=== PATIENT | female | born 1975 | race Caucasian/White ===

== ENCOUNTER → 2017-07-02 | Outpatient (CLI) | payer BC ==
--- NOTE | 2017-07-02 22:33 | CT ---
EXAMINATION TYPE: CT brain wo/w con DATE OF EXAM: 07/02/2017 COMPARISON: NONE HISTORY: 42-year-old female Migraines x 17 years, becoming more frequent on a weekly basis. TECHNIQUE: Examination was done in axial plane before and after intravenous contrast. 100 mL Isovue -370 contrast was administered. Coronal and sagittal reconstructions performed. CT DLP: 1965.4 mGycm Automated exposure control for dose reduction was used. FINDINGS: There is no evidence of acute intracranial hemorrhage, acute ischemic changes, mass, mass-effect, or extra-axial fluid collection. There is no effacement of cerebral sulci or basal subarachnoid cister ns. There is no hydrocephalus. There is no midline shift. Flanagan-white matter distinction is preserv ed. No enhancing intracranial lesions. Dural venous sinuses are patent. Paranasal sinuses and mastoid air cells well pneumatized. Orbits and globes are intact. IMPRESSION: No acute intracranial abnormality or enhancing intracranial lesions seen.
== END | disposition home or self-care (01) ==
LOC: RADCTMAIN 15:30
PROVIDERS: ATTEND Family Medicine
DX: R51 Headache (principal)
CPT/HCPCS: 70470; Q9967

== ENCOUNTER 2018-05-28 17:55 | Emergency (ER) | payer BC ==
[2018-05-28 18:33] VITALS: TEMP 98.8
[2018-05-28] MEDS ORDERED: SODIUM CHLORIDE 0.9% 1,000 ML IV STA (18:51)
[2018-05-28] MEDS ORDERED: KETOROLAC 30 MG/ML 1 ML VIAL IVP STA (19:00)
[2018-05-28] MEDS ORDERED: ONDANSETRON 4 MG/2 ML VIAL IVP STA (19:00)
--- NOTE | 2018-05-28 19:08 | ED ---
Abdominal Pain HPI - General Chief Complaint: Abdominal Pain Stated Complaint: Abd and back pain Time Seen by Provider: 05/28/18 18:51 Source: patient, RN notes reviewed Mode of arrival: ambulatory Limitations: no limitations - History of Present Illness Initial Comments: 43-year-old female presents emergency Department with chief complaint of upper abdominal pain, back pain. Patient states this started yesterday has progressed and today. Patient states it's worse when she cannot eat today. She has had a prior cholecystectomy 21 years ago. Patient denies any chest pain or shortness of breath. No fever or chills. She's had some nausea denies any change in bowel habits. She has no dysuria no hematuria. Patient states that all the pain is in her upper abdomen no prior history of pancreatitis. She does take omeprazole currently for GERD. She does have some current symptoms. - Related Data Previous Rx's Medication Instructions Recorded Omeprazole 40 mg PO DAILY #14 capsule. 05/28/18 Ondansetron Odt [Zofran Odt] 4 mg PO Q8HR PRN #10 tab 05/28/18 Sucralfate [Carafate] 1 gm PO BID #14 tablet 05/28/18 Allergies Allergy/AdvReac Type Severity Reaction Status Date / Time No Known Allergies Allergy Verified 05/28/18 18:33 Review of Systems ROS Statement: Those systems with pertinent positive or pertinent negative responses have been documented in the HPI. ROS Other: All systems not noted in ROS Statement are negative. Past Medical History Additional Past Medical History / Comment(s): migraines History of Any Multi-Drug Resistant Organisms: None Reported Past Surgical History: Cholecystectomy Past Psychological History: Depression Smoking Status: Never smoker Past Alcohol Use History: None Reported Past Drug Use History: None Reported General Exam Limitations: no limitations General appearance: alert, in no apparent distress Head exam: Present: atraumatic, normocephalic, normal inspection Eye exam: Present: normal appearance, PERRL, EOMI. Absent: scleral icterus, conjunctival injection, periorbital swelling ENT exam: Present: normal exam, normal oropharynx, mucous membranes moist Neck exam: Present: normal inspection. Absent: tenderness, meningismus, lymphadenopathy Respiratory exam: Present: normal lung sounds bilaterally. Absent: respiratory distress, wheezes, rales, rhonchi, stridor Cardiovascular Exam: Present: regular rate, normal rhythm, normal heart sounds. Absent: systolic murmur, diastolic murmur, rubs, gallop, clicks GI/Abdominal exam: Present: soft, tenderness (Moderate upper abdominal tenderness), normal bowel sounds. Absent: distended, guarding, rebound, rigid Back exam: Absent: CVA tenderness (R), CVA tenderness (L) Skin exam: Present: warm, dry, intact, normal color. Absent: rash Course Vital Signs 05/28/18 18:29 Temperature 98.8 F Pulse Rate 98 Respiratory 18 Rate Blood Pressure 133/72 O2 Sat by Pulse 99 Oximetry Medical Decision Making - Medical Decision Making 43-year-old male presented for upper abdominal pain. Is reproducible pain epigastric region. Patient had lab work, CT and urinalysis. Patient's symptoms are more consistent with gastritis or duodenitis. Patient has no evidence of any acute findings on CT. Patient will be given GI cocktail, discharge on up to 40 mg and Carafate. Patient will follow-up with on-call GI and return for any worsening symptoms. - Lab Data Result diagrams: 05/28/18 19:21 05/28/18 19:21 Lab Results 05/28/18 05/28/18 05/28/18 Range/Units 19:21 19:21 19:21 WBC 12.7 H (3.8-10.6) k/uL RBC 5.28 (3.80-5.40) m/uL Hgb 15.2 (11.4-16.0) gm/dL Hct 46.1 H (34.0-46.0) % MCV 87.3 (80.0-100.0) fL MCH 28.8 (25.0-35.0) pg MCHC 33.0 (31.0-37.0) g/dL RDW 12.6 (11.5-15.5) % Plt Count 313 (150-450) k/uL Neutrophils % 62 % Lymphocytes % 30 % Monocytes % 4 % Eosinophils % 2 % Basophils % 0 % Neutrophils # 7.9 H (1.3-7.7) k/uL Lymphocytes # 3.8 (1.0-4.8) k/uL Monocytes # 0.6 (0-1.0) k/uL Eosinophils # 0.2 (0-0.7) k/uL Basophils # 0.0 (0-0.2) k/uL Sodium 138 (137-145) mmol/L Potassium 4.3 (3.5-5.1) mmol/L Chloride 107 (98-107) mmol/L Carbon Dioxide 23 (22-30) mmol/L Anion Gap 8 mmol/L BUN 14 (7-17) mg/dL Creatinine 0.60 (0.52-1.04) mg/dL Est GFR (CKD-EPI)AfAm >90 (>60 ml/min/1.73 sqM) Est GFR (CKD-EPI)NonAf >90 (>60 ml/min/1.73 sqM) Glucose 75 (74-99) mg/dL Plasma Lactic Acid Erick 0.8 (0.7-2.0) mmol/L Calcium 8.6 (8.4-10.2) mg/dL Total Bilirubin 0.8 (0.2-1.3) mg/dL AST 27 (14-36) U/L ALT 39 (9-52) U/L Alkaline Phosphatase 47 (38-126) U/L Troponin I (0.000-0.034) ng/mL Total Protein 6.1 L (6.3-8.2) g/dL Albumin 3.5 (3.5-5.0) g/dL Amylase 50 (30-110) U/L Lipase 96 (23-300) U/L Urine Color Urine Appearance (Clear) Urine pH (5.0-8.0) Ur Specific Sandstone (1.001-1.035) Urine Protein (Negative) Urine Glucose (UA) (Negative) Urine Ketones (Negative) Urine Blood (Negative) Urine Nitrite (Negative) Urine Bilirubin (Negative) Urine Urobilinogen (<2.0) mg/dL Ur Leukocyte Esterase (Negative) Urine RBC (0-5) /hpf Urine WBC (0-5) /hpf Ur Squamous Epith Cells (0-4) /hpf Hyaline Casts (0-2) /lpf Urine Mucus (None) /hpf Urine HCG, Qual (Not Detectd) 05/28/18 05/28/18 05/28/18 Range/Units 19:21 19:40 19:40 WBC (3.8-10.6) k/uL RBC (3.80-5.40) m/uL Hgb (11.4-16.0) gm/dL Hct (34.0-46.0) % MCV (80.0-100.0) fL MCH (25.0-35.0) pg MCHC (31.0-37.0) g/dL RDW (11.5-15.5) % Plt Count (150-450) k/uL Neutrophils % % Lymphocytes % % Monocytes % % Eosinophils % % Basophils % % Neutrophils # (1.3-7.7) k/uL Lymphocytes # (1.0-4.8) k/uL Monocytes # (0-1.0) k/uL Eosinophils # (0-0.7) k/uL Basophils # (0-0.2) k/uL Sodium (137-145) mmol/L Potassium (3.5-5.1) mmol/L Chloride (98-107) mmol/L Carbon Dioxide (22-30) mmol/L Anion Gap mmol/L BUN (7-17) mg/dL Creatinine (0.52-1.04) mg/dL Est GFR (CKD-EPI)AfAm (>60 ml/min/1.73 sqM) Est GFR (CKD-EPI)NonAf (>60 ml/min/1.73 sqM) Glucose (74-99) mg/dL Plasma Lactic Acid Erick (0.7-2.0) mmol/L Calcium (8.4-10.2) mg/dL Total Bilirubin (0.2-1.3) mg/dL AST (14-36) U/L ALT (9-52) U/L Alkaline Phosphatase (38-126) U/L Troponin I <0.012 (0.000-0.034) ng/mL Total Protein (6.3-8.2) g/dL Albumin (3.5-5.0) g/dL Amylase (30-110) U/L Lipase (23-300) U/L Urine Color Yellow Urine Appearance Clear (Clear) Urine pH 6.0 (5.0-8.0) Ur Specific Sandstone 1.031 (1.001-1.035) Urine Protein Trace H (Negative) Urine Glucose (UA) Negative (Negative) Urine Ketones 2+ H (Negative) Urine Blood Moderate H (Negative) Urine Nitrite Negative (Negative) Urine Bilirubin Negative (Negative) Urine Urobilinogen <2.0 (<2.0) mg/dL Ur Leukocyte Esterase Negative (Negative) Urine RBC 11 H (0-5) /hpf Urine WBC 2 (0-5) /hpf Ur Squamous Epith Cells 4 (0-4) /hpf Hyaline Casts 3 H (0-2) /lpf Urine Mucus Many H (None) /hpf Urine HCG, Qual Not Detected (Not Detectd) Disposition Clinical Impression: Abdominal pain, Gastritis Disposition: HOME SELF-CARE Condition: Stable Instructions (If sedation given, give patient instructions): Gastritis (ED), Diet for Stomach Ulcers and Gastritis (ED) Additional Instructions: Please return to the Emergency Department if symptoms worsen or any other concerns. Prescriptions: Sucralfate [Carafate] 1 gm PO BID #14 tablet Omeprazole 40 mg PO DAILY #14 capsule. Ondansetron Odt [Zofran Odt] 4 mg PO Q8HR PRN #10 tab PRN Reason: Nausea Is patient prescribed a controlled substance at d/c from ED?: No Referrals: Derrick Colvin DO [Primary Care Provider] - 1-2 days Time of Disposition: 21:02
[2018-05-28 19:45] LABS: Basophils % (A) 0 %; Eosinophils # (A) 0.2 k/uL (0-0.7); Eosinophils % (A) 2 %; HCT 46.1 % (34.0-46.0); HGB 15.2 gm/dL (11.4-16.0); Lymphocytes # (A) 3.8 k/uL (1.0-4.8); Lymphocytes % (A) 30 %; MCH 28.8 pg (25.0-35.0); MCV 87.3 fL (80.0-100.0); Mean Platelet Volume 6.4; Monocytes # (A) 0.6 k/uL (0-1.0); Monocytes % (A) 4 %; Neutrophils # (A) 7.9 k/uL (1.3-7.7); Neutrophils % (A) 62 %; Platelet Count 313 k/uL (150-450); RBC 5.28 m/uL (3.80-5.40); RDW 12.6 % (11.5-15.5); WBC 12.7 k/uL (3.8-10.6)
[2018-05-28 20:06] LABS: ALT 39 U/L (9-52); AST 27 U/L (14-36); Albumin 3.5 g/dL (3.5-5.0); Alkaline Phosphatase 47 U/L (38-126); Amylase 50 U/L (30-110); Anion Gap 8 mmol/L; Blood Urea Nitrogen 14 mg/dL (7-17); Calcium 8.6 mg/dL (8.4-10.2); Carbon Dioxide 23 mmol/L (22-30); Chloride 107 mmol/L (98-107); Glucose 75 mg/dL (74-99); Lipase 96 U/L (23-300); Potassium 4.3 mmol/L (3.5-5.1); Sodium 138 mmol/L (137-145); Total Bilirubin 0.8 mg/dL (0.2-1.3); Total Protein 6.1 g/dL (6.3-8.2)
[2018-05-28 20:15] LABS: Appearance,Urine Clear (Clear); Bilirubin,Urine Negative (Negative); Blood,Urine Moderate (Negative); Color,Urine Yellow; Glucose,Urine (UA) Negative (Negative); Hyaline Casts,Urine 3 /lpf (0-2); Ketones,Urine 2+ (Negative); Leukocyte Esterase,Urine Negative (Negative); Mucus,Urine Many /hpf; Nitrite,Urine Negative (Negative); Protein,Urine Trace (Negative); RBC,Urine 11 /hpf (0-5); Specific Gravity,Urine 1.031 (1.001-1.035); Squamous Epithelial Cell,Urine 4 /hpf (0-4); Urobilinogen,Urine <2.0 mg/dL (<2.0)
--- NOTE | 2018-05-28 20:44 | CT ---
EXAMINATION TYPE: CT abdomen pelvis w con DATE OF EXAM: 05/28/2018 COMPARISON: None HISTORY: Abdomen/back pain starting yesterday CT DLP: 1404.1 mGycm Automated exposure control for dose reduction was used. TECHNIQUE: Helical acquisition of images was performed from the lung bases through the pelvis. CONTRAST: Performed without Oral Contrast and with IV Contrast, patient injected with 100 mL of Isovu e 300. FINDINGS: LUNG BASES: No significant abnormality is appreciated. LIVER/GB: No significant abnormality is appreciated. PANCREAS: No significant abnormality is seen. SPLEEN: No significant abnormality is seen. ADRENALS: No significant abnormality is seen. KIDNEYS: No significant abnormality is seen. FREE AIR: No free air is visualized. RETROPERITONEAL ADENOPATHY: None visualized REPRODUCTIVE ORGANS: No significant abnormality is seen URINARY BLADDER: No significant abnormality is seen. PELVIC ADENOPATHY: None visualized. OSSEOUS STRUCTURES: No significant abnormality is seen. BOWEL: No significant abnormality is seen. OTHER: No acute vascular findings. IMPRESSION: NO ACUTE PROCESS.
[2018-05-28] MEDS ORDERED: MAG HYDROX/AL HYDROX/SIMETH 30 ML, HYOSCYAMINE ELIXIR 10 ML, CIMETIDINE HCL 300 MG, LID... PO STA ×4 (20:54)
[2018-05-28 21:17] VITALS: BP 125/79; PULSE 83; RESP 16
== END 2018-05-28 21:17 | disposition home or self-care (01) ==
LOC: EC 17:55
DX: K29.70 Gastritis, unspecified, without bleeding (principal); K21.9 Gastro-esophageal reflux disease without esophagitis; Z90.49 Acquired absence of other specified parts of digestive tract
CPT/HCPCS: 36415; 93005; 80053; 82150; 83605; 83690; 84484; 85025; 81001; 81025; 74177; 99284; 96374; 96375; 96361; J2405; J1885; Q9967

== ENCOUNTER → 2019-12-22 | Outpatient (CLI) | payer BC ==
--- NOTE | 2019-12-22 08:26 | US ---
EXAMINATION TYPE: US abdomen complete DATE OF EXAM: 12/22/2019 COMPARISON: CT CLINICAL HISTORY: R14.0 bloating, K85.9 pancreatitis. Patient stated is unaware of pancreatitis; take s medication for control, Adderall, protonics, migraines; gallbladder removed. EXAM MEASUREMENTS: Liver Length: 16.2 cm Gallbladder: surgically removed CBD: 0.3 cm Spleen: 9.6 cm Right Kidney: 9.4 x 6.3 x 3.9 cm Left Kidney: 10.2 x 6.3 x 6.0 cm Pancreas: hyperechoic Liver: attenuated posteriorly Gallbladder: surgically absent Evidence for sonographic Padilla's sign: no CBD: wnl Spleen: wnl Right Kidney: No hydronephrosis or masses seen Left Kidney: No hydronephrosis or masses seen Upper IVC: wnl Abd Aorta: wnl The intrahepatic portion of the IVC and proximal abdominal aorta are within normal limits. Common bi le duct is unremarkable. The visualized portions of the pancreas are homogenous. The spleen is unre markable. Kidneys are symmetric and free of hydronephrosis. No renal lesions are seen. IMPRESSION: 1. Fatty liver.
== END | disposition home or self-care (01) ==
LOC: RADUSWWP 07:03
PROVIDERS: ATTEND Family Medicine
DX: K76.0 Fatty (change of) liver, not elsewhere classified (principal)
CPT/HCPCS: 76700

== ENCOUNTER → 2020-03-15 | Outpatient (CLI) | payer BC ==
--- NOTE | 2020-03-15 16:01 | XR ---
EXAMINATION TYPE: XR lumbar spine 2 or 3V DATE OF EXAM: 03/15/2020 COMPARISON: None HISTORY: Chronic back pain TECHNIQUE: Three-view lumbar spine FINDINGS: There 5 lumbar-type vertebral bodies. Pedicles are intact. Disc heights are preserved. Vert ebral body heights are preserved. Alignment is normal. Note is made of spina bifida occulta of L5 IMPRESSION: 1. No acute abnormality lumbar spine
--- NOTE | 2020-03-15 16:02 | XR ---
EXAMINATION TYPE: XR thoracic spine 2V DATE OF EXAM: 03/15/2020 COMPARISON: None HISTORY: Chronic back pain TECHNIQUE: Three-view thoracic spine FINDINGS: There are 12 thoracic type humeral bodies. Pedicles are intact. Mild spondylosis and lower thoracic spine. Disc heights are preserved. Vertebral body heights are preserved. Alignment is normal . IMPRESSION: 1. No acute abnormality thoracic spine
--- NOTE | 2020-03-15 16:04 | XR ---
EXAMINATION TYPE: XR cervical spine comp DATE OF EXAM: 03/15/2020 COMPARISON: None HISTORY: Back pain TECHNIQUE: 5 view cervical spine supplemented with a submental vertex view FINDINGS: Foramen are patent. Prevertebral space is normal. C6-7 disc space has mild narrowing. Some mild posterior endplate spurring may be present. Posterior spinal lamellar line is intact. Odontoid i s visualized is normal. IMPRESSION: 1. Mild degenerative disc changes C6-7.
--- NOTE | 2020-03-15 16:05 | XR ---
EXAMINATION TYPE: XR sacrum coccyx DATE OF EXAM: 03/15/2020 COMPARISON: None HISTORY: Back pain chronic TECHNIQUE: Three-view sacrum and coccyx FINDINGS: Sacroiliac joints appear mild degenerative. No acute sacral fractures are evident. Sacrum a nd coccyx alignment appears normal. IMPRESSION: 1. Normal sacrum and coccyx
== END | disposition home or self-care (01) ==
LOC: RADXRMAIN 14:55
PROVIDERS: ATTEND Family Medicine
DX: M47.812 Spondylosis without myelopathy or radiculopathy, cervical region (principal); M54.9 Dorsalgia, unspecified; M54.40 Lumbago with sciatica, unspecified side; G89.29 Other chronic pain
CPT/HCPCS: 72050; 72070; 72100; 72220

== ENCOUNTER → 2020-07-12 | Outpatient (CLI) | payer BC ==
--- NOTE | 2020-07-12 14:30 | MR ---
EXAMINATION TYPE: MR lumbar spine wo con DATE OF EXAM: 07/12/2020 COMPARISON: X-ray 05/09/2020 HISTORY: Low back pain into rt buttocks TECHNIQUE: T1 and T2 axial and sagittal images of the lumbar spine are submitted. FINDINGS: Exam is limited by motion artifact. There is no abnormal signal seen within the visualized spinal cord. There is a indeterminant too smal l to characterize nodule involving the left adrenal gland measuring 7.8 mm.. At L1-2 there is assessment is limited due to severe motion artifact. Mild hypertrophic change of the facets. No obvious sagittal foraminal encroachment or disc herniation. Vertebral body hemangioma L1 and T11. At L2-3 there is severe limitation on axial images due to motion. Hypertrophic change of the facets. No obvious disc herniation, canal stenosis, or foraminal encroachment. At L3-4 there is hypertrophic change of the facets and ligamentum flavum. Motion artifact on the axia l images severely limits the exam. No obvious disc herniation or canal stenosis. No foraminal encroac hment. At L4-5 there is hypertrophic advanced facet arthropathy with ligamentum flavum hypertrophy but no di sc herniation or canal stenosis. No foraminal encroachment. At L5-S1 there is facet arthropathy but no disc herniation or canal stenosis. No foraminal encroachme nt. IMPRESSION: 1. Multilevel facet arthropathy with the no obvious disc herniation or canal stenosis as visualized. Exam limited due to significant motion artifact. 2. Indeterminate too small to characterize 7.8 mm left adrenal nodule.
== END | disposition home or self-care (01) ==
LOC: RADMRIMAIN 13:20
PROVIDERS: ATTEND Orthopaedic Surgery
DX: M47.816 Spondylosis without myelopathy or radiculopathy, lumbar region (principal); E27.9 Disorder of adrenal gland, unspecified
CPT/HCPCS: 72148

== ENCOUNTER → 2020-09-13 | Day surgery (SDC) | payer BC ==
[2020-09-12 10:35] VITALS: BMI 36.6
[~2020-09-13] MED LIST: IV FLUID CONTINUATION 1,000 ML IV ONE; LACTATED RINGERS 1,000 ML IV SCH; LIDOCAINE 1% (10MG/ML) FOR IV START INTRADERMA ONE; MIDAZOLAM 2 MG/2 ML VIAL ONE; ROPIVACAINE 5MG/ML 20ML VIAL ONE; TRIAMCINOLONE ACETONIDE 40 MG/ML 1 ML VIAL ONE; fentaNYL (PF) 50 MCG/ML 2 ML AMP ONE
[2020-09-13 09:25] VITALS: TEMP 97.1
--- NOTE | 2020-09-13 09:42 | P.PCN ---
Date of Procedure: 09/13/20 Surgeon: Gisel Martell Pathology: none sent Condition: stable Disposition: PACU Description of Procedure: Preoperative diagnoses= sacroiliac joint dysfunction and sacroiliitis on the r ight side Postoperative diagnoses= same as preoperative diagnosis. Procedure= sacroiliac joint steroid injection under fluoroscopic guidance. Anesthesia= local anesthesia with lidocaine 1% and IV moderate conscious sedation with fentanyl and Versed Estimated blood loss=minimal. Procedure indication= the patient had a history of severe chronic low back pain, diagnosed with sacroiliitis and lumbar sacral facet arthropathy unresponsive to conservative treatment. Procedure description= the patient was seen and identified in the preoperative holding area, risks and benefits and alternative of the procedure and possible complications discussed with the patient, patient signed the consent. an IV was started, and vital signs were monitored and were stable throughout the pr ocedure, patient was placed in the prone position or table and the lumbosacral area was prepped and draped with a sterile fashion, vital signs were closely monitored during the procedure.The right sacroiliac joint was identified on the AP view of fluoroscopy then the C-arm was tilted to the contralateral oblique position to superimpose the anterior and posterior joint lines on each other and to have a unified joint line with the target point at the inferior one third of this line. I used 22-gauge 3-1/2 inch Quincke spinal needle for this procedure and after getting into the sacroiliac joint I injected 40 mg of Kenalog +2 MLS of Ropivacaine 0.5%. Patient tolerated the procedure well without any complication, The patient returned to supine position after the back was cleaned and a Band- Aid applied, the patient transported to recovery room in stable condition and he was monitored for 30 minutes before she was discharged home in stable condition . patient will follow up with the pain clinic in a few weeks. A copy of the needle placement was saved to the C-arm machine.
--- NOTE | 2020-09-13 10:04 | FL ---
EXAMINATION TYPE: FL guided pain mgmt statistic DATE OF EXAM: 09/13/2020 CLINICAL HISTORY: Sacroiliac joint pain. TECHNIQUE: Fluoroscopy. COMPARISON: None. FINDINGS: Fluoroscopic guidance was provided during pain relief procedure performed by Dr. Martell . A total of 7 seconds of fluoroscopic time was utilized during the procedure and 1 spot images are a cquired. Single image acquired shows needle localization at level of sacroiliac joint. IMPRESSION: As Above.
[2020-09-13 10:07] VITALS: BP 124/85; PULSE 75; RESP 18
== END ==
LOC: ORPAIN 09:00
PROVIDERS: ATTEND Anesthesiology
DX: M53.3 Sacrococcygeal disorders, not elsewhere classified (principal)
CPT/HCPCS: 27096; 81025; J2250; J3301; J3010; J2795

== ENCOUNTER → 2020-11-02 | Outpatient (CLI) | payer BC ==
[2020-11-02 07:39] VITALS: BP 138/82; PULSE 78; RESP 18; TEMP 98.6
--- NOTE | 2020-11-02 07:53 | P.PN ---
Subjective Progress Note Date: 11/02/20 This is a follow-up visit is 45 years old female with a chronic history of severe low back pain she is diagnosed with right sacroiliitis and right sacroiliac joint dysfunction, he weeks ago we held on the right side sacroiliac joint steroid injection, and she got excellent pain relief for several weeks, jhaveri d more than 90% decrease in her pain level and she was able to function and do more activity, she denies any motor or sensory deficit she denies any fever or night sweats she denies any change in the bowel movement or urination, she reported that the pain is constant and increases with any activity, patient already done physical therapy for more than 2 months, and she had minimal benefit from it she continues to do home exercise Objective - Vital Signs Vital signs: Vital Signs Temp 98.6 F 11/02/20 07:34 Pulse 78 11/02/20 07:34 Resp 18 11/02/20 07:34 BP 138/82 11/02/20 07:34 Pulse Ox 97 11/02/20 07:34 Intake & Output 11/01/20 11/02/20 11/02/20 18:59 06:59 18:59 Weight 88.451 kg - Exam Physical Examinations : -Constitutiona : Cooperative , not in acute distress . -HEENT : nech : supple , no Lymphadenopathy , normal thyroid size . : eyes : no ptosis , no icterus, no photophobia . - neurologic : Cranial nerve II to XII intact , no focal neurological deffecit . -psychatric : alert , oriented X 3 , appropriate affect , intact judgment and insight . -Lymphatic : no Lymphadenopathy . - musculoskeltal : . Lumber spine moter stegnth lower extremities ,thigh and legs 5/5 Right side , 5/5 Left side deep tendon reflexes : normal Knee Jerk , normal ankle Jerk lumber facet Loading Test =positive Right , negative Left Range of motion of the lumbar spine Flexion 60 degrees, extension 30 degrees strait leg raising test = negative bilaterally Fabere test= negative bilaterally. Sever tenderness over the Sacroiliac joint on the Right . Gaenslen test= positive right . Seated flexion test= positive right . Distraction test= positive right Sacroiliac compression test= positive right . Assessment and Plan Plan: Assessment and plan=1-right sacroiliitis. 2-Right sacroiliac joint dysfunction. Patient failed conservative treatment ,she could benefit from repeat ,right-sided sacroiliac joint steroid injection. she is Already done physical therapy. - PQRS measures = - Patient's medications are documented in the chart. -Tobacco use is negative and counseling.Given. -Patient's has not received pneumococcal vaccine. -Advanced care planning discussed, patient not eligible. -Opiate contract not signed. -Pain positive and follow-up visit/procedure is scheduled. -Patient's blood pressure measured [138/82 ] , and documented in the record ,and patient will follow up with the primary care. -Patient's weight was measured and body mass index [ ] above the normal limits and counseling was done. and patient instructed to follow-up with the primary care physician. -Patient was not identified as an unhealthy alcohol user Time with Patient: Less than 30
== END | disposition home or self-care (01) ==
LOC: PNWHC3 07:28
PROVIDERS: ATTEND Specialist
DX: M46.1 Sacroiliitis, not elsewhere classified (principal)
CPT/HCPCS: 99211

== ENCOUNTER → 2020-11-08 | Outpatient (CLI) | payer BC ==
--- NOTE | 2020-11-10 11:47 | MM ---
Reason for exam: screening (asymptomatic). Last mammogram was performed 7 years and 3 months ago. History: Taking hormonal contraceptives beginning at age 22. Physical Findings: A clinical breast exam by your physician is recommended on an annual basis and results should be correlated with mammographic findings. MG Screening Mammo w CAD Bilateral CC and MLO view(s) were taken. No prior studies available for comparison. There are scattered fibroglandular densities. There is no discrete abnormality. ASSESSMENT: Benign, BI-RAD 2 RECOMMENDATION: Routine screening mammogram of both breasts in 1 year.
== END | disposition home or self-care (01) ==
LOC: RADMAMWWP 12:40
PROVIDERS: ATTEND Obstetrics & Gynecology
DX: Z12.31 Encounter for screening mammogram for malignant neoplasm of breast (principal)
CPT/HCPCS: 77067

== ENCOUNTER → 2020-12-06 | Outpatient (CLI) | payer BC ==
--- NOTE | 2020-12-06 11:35 | ECHOF ---
Referral Reason:R07.9 chest pain MEASUREMENTS -------- HEIGHT: 160.0 cm WEIGHT: 87.1 kg BP: RVIDd: 3.0 cm (< 3.3) IVSd: 1.2 cm (0.6 - 1.1) LVIDd: 3.8 cm (3.9 - 5.3) LVPWd: 1.3 cm (0.6 - 1.1) IVSs: 1.6 cm LVIDs: 2.6 cm LVPWs: 1.5 cm LAESV Index (A-L): 21.17 ml/m Ao Diam: 3.0 cm (2.0 - 3.7) AV Cusp: 1.8 cm (1.5 - 2.6) MV EXCURSION: 16.399 mm (> 18.000) MV EF SLOPE: 116 mm/s (70 - 150) EPSS: 0.4 cm MV E Massimo: 1.08 m/s MV DecT: 143 ms MV A Massimo: 0.79 m/s MV E/A Ratio: 1.36 AR PHT: 408 ms RAP: 5.00 mmHg RVSP: 25.71 mmHg FINDINGS -------- Sinus rhythm. This was a technically adequate study. The left ventricular size is normal. There is borderline concentric left ventricular hypertrophy. Overall left ventricular systolic function is normal with, an EF between 55 - 60 %. The diastolic filling pattern is normal for the age of the patient 10.66. The right ventricle is normal in size. Normal LA size by volume 22+/-6 ml/m2. The right atrial size is normal. Interatrial and interventricular septum intact. The aortic valve is trileaflet and appears structurally normal. Trace amount of aortic regurgitatio n. There is no evidence of aortic stenosis. No mitral regurgitation. Mild tricuspid regurgitation present. There is no evidence of pulmonary hypertension. The right v entricular systolic pressure, as measured by Doppler, is 25.71mmHg. There is no pulmonic regurgitation present. The aortic root size is normal. Normal inferior vena cava with normal inspiratory collapse consistent with estimated right atrial pre ssure of 5 mmHg. There is no pericardial effusion. CONCLUSIONS -------- 1. The left ventricular size is normal. 2. There is borderline concentric left ventricular hypertrophy. 3. Overall left ventricular systolic function is normal with, an EF between 55 - 60 %. 4. The diastolic filling pattern is normal for the age of the patient 10.66 5. Trace amount of aortic regurgitation. 6. Mild tricuspid regurgitation present. [employer]: Belia Chamorro RDCS
== END | disposition home or self-care (01) ==
LOC: RADECHMAIN 08:24
PROVIDERS: ATTEND Family Medicine
DX: I07.1 Rheumatic tricuspid insufficiency (principal)
CPT/HCPCS: 93306

== ENCOUNTER 2021-01-03 11:11 | Day surgery (SDC) | payer BC ==
[2021-01-03] MEDS: LACTATED RINGERS 1,000 ML IV SCH ×2 (11:39→12:28)
[2021-01-03] MEDS ORDERED: LIDOCAINE 1% (10MG/ML) FOR IV START INTRADERMA ONE (11:40)
[2021-01-03 11:44] VITALS: TEMP 97.8
[2021-01-03] MEDS ORDERED: MIDAZOLAM 2 MG/2 ML VIAL ONE (12:28)
[2021-01-03] MEDS ORDERED: fentaNYL (PF) 50 MCG/ML 2 ML AMP ONE (12:28)
[2021-01-03] MEDS ORDERED: ROPIVACAINE 5MG/ML 20ML VIAL ONE (12:28)
[2021-01-03] MEDS ORDERED: TRIAMCINOLONE ACETONIDE 40 MG/ML 1 ML VIAL ONE (12:28)
--- NOTE | 2021-01-03 12:41 | P.PCN ---
Date of Procedure: 01/03/21 Surgeon: Gisel Martell Pathology: none sent Condition: stable Disposition: PACU Description of Procedure: Preoperative diagnoses= sacroiliac joint dysfunction and sacroiliitis on the ri ght side Postoperative diagnoses= same as preoperative diagnosis. Procedure= sacroiliac joint steroid injection under fluoroscopic guidance. Anesthesia= local anesthesia with lidocaine 1% and IV moderate conscious sedation with fentanyl and Versed Estimated blood loss=minimal. Procedure indication= the patient had a history of severe chronic low back pain, diagnosed with sacroiliitis and lumbar sacral facet arthropathy unresponsive to conservative treatment. Procedure description= the patient was seen and identified in the preoperative holding area, risks and benefits and alternative of the procedure and possible complications discussed with the patient, patient signed the consent. an IV was started, and vital signs were monitored and were stable throughout the pr ocedure, patient was placed in the prone position or table and the lumbosacral area was prepped and draped with a sterile fashion, vital signs were closely monitored during the procedure.The sacroiliac joint was identified on the AP view of fluoroscopy then the C-arm was tilted to the contralateral oblique position to superimpose the anterior and posterior joint lines on each other and to have a unified joint line with the target point at the inferior one third of this line. I used 22-gauge 3-1/2 inch Quincke spinal needle for this procedure and after getting into the sacroiliac joint I injected 40 mg of Kenalog +2 MLS of Ropivacaine 0.5%. Patient tolerated the procedure well without any complication, The patient returned to supine position after the back was cleaned and a Band- Aid applied, the patient transported to recovery room in stable condition and he was monitored for 30 minutes before she was discharged home in stable condition . patient will follow up with the pain clinic in a few weeks. A copy of the needle placement was saved to the C-arm machine.
[2021-01-03] MEDS ORDERED: IV FLUID CONTINUATION 650 ML IV ONE (12:44)
[2021-01-03 12:46] VITALS: RESP 16
--- NOTE | 2021-01-03 13:06 | FL ---
EXAMINATION TYPE: FL guided pain mgmt statistic DATE OF EXAM: 01/03/2021 CLINICAL HISTORY: Sacroiliac joint pain. TECHNIQUE: Fluoroscopy. COMPARISON: None. FINDINGS: Fluoroscopic guidance was provided during pain relief procedure performed by Dr. Martell . A total of 6 seconds of fluoroscopic time was utilized during the procedure and 1 spot images are a cquired. Single image acquired shows needle localization at inferior sacroiliac joint level. IMPRESSION: As Above.
[2021-01-03 13:22] VITALS: BP 129/86; PULSE 84
== END 2021-01-03 13:20 | disposition home or self-care (01) ==
LOC: ORPAIN 11:11
PROVIDERS: ATTEND Anesthesiology
DX: M46.1 Sacroiliitis, not elsewhere classified (principal); M53.3 Sacrococcygeal disorders, not elsewhere classified; K21.9 Gastro-esophageal reflux disease without esophagitis; R51.9 Headache, unspecified
CPT/HCPCS: 81025; 27096; J2250; J3301; J3010; J2795; 99152

== ENCOUNTER → 2021-05-23 | Outpatient (CLI) | payer BC ==
[2021-05-23 14:58] LABS: African American GFR (CKD) 103.2 (60.0-200.0); Albumin 4.1 g/dL (3.8-4.9); Albumin/Globulin Ratio 1.41 (1.60-3.17); Anion Gap 12.5 mmol/L (10.00-18.00); BUN/Creat Ratio 16.25 Ratio (12.00-20.00); Carbon Dioxide 23.5 mmol/L (20.0-27.5); Globulin 2.9 g/dL (1.6-3.3); Potassium 3.5 mmol/L (3.5-5.5); Total Bilirubin 0.4 mg/dL (0.30-1.20)
[2021-05-23 18:40] LABS: Gliadin AB IgA, Deaminated NEGATIVE (NEGATIVE); Gliadin AB IgA, Unit 3.8 U/mL; Gliadin AB IgG, Deaminated NEGATIVE (NEGATIVE); Gliadin AB IgG, Unit <0.4 U/mL
--- NOTE | 2021-05-24 04:47 | MR ---
EXAMINATION TYPE: MR MRCP DATE OF EXAM: 05/23/2021 COMPARISON: None HISTORY: epigastric pain Multiplanar multiecho imaging of the abdomen without contrast. Liver has normal size and contour. Spleen is intact. The bile ducts are not dilated. There is no evid ence of pancreatic mass. Pancreatic duct appears normal. Common bile duct appears normal. Intrahepati c bile ducts appear normal. No filling defect. Gallbladder is absent. Kidneys have normal size. There is no hydronephrosis. There is no sign of retroperitoneal adenopathy. Ureters are not dilated. There is no ascites. No sign of a bowel obstruction. There is no pleural ef fusion. Heart size is normal. IMPRESSION: Negative exam. No evidence of common duct stone. No dilated ducts.
== END | disposition home or self-care (01) ==
LOC: RADMRIMAIN 07:27
PROVIDERS: ATTEND Internal Medicine Gastroenterology
DX: K52.9 Noninfective gastroenteritis and colitis, unspecified (principal)
CPT/HCPCS: 74181; 80053; 83516; 85652; 86140

== ENCOUNTER → 2022-05-15 | Outpatient (CLI) | payer BC ==
--- NOTE | 2022-05-16 09:13 | MM ---
Reason for Exam: Screening (asymptomatic). Last mammogram was performed 1 year(s) and 7 month(s) ago. Patient History: Menarche at age 12. First Full-Term at age 21. Premenopausal. Currently using Hormonal Contraceptives, starting at age 22. Risk Values: Audrey 5 year model risk: 0.8%. NCI Lifetime model risk: 9.3%. Prior Study Comparison: 08/21/2013 Screening Mammogram, [facility]. 11/08/2020 Bilateral Screening Mammogram, [facility]. Tissue Density: There are scattered fibroglandular densities. Findings: Analyzed By CAD. There is no suspicious group of microcalcifications or new suspicious mass in either breast. Overall Assessment: Negative, BI-RAD 1 Management: Screening Mammogram of both breasts in 1 year. A clinical breast exam by your physician is recommended on an annual basis and results should be correlated with mammographic findings. Electronically signed and approved by: Ger Serrato M.D.
== END | disposition home or self-care (01) ==
LOC: RADMAMWWP 07:35
PROVIDERS: ATTEND Obstetrics & Gynecology
DX: Z12.31 Encounter for screening mammogram for malignant neoplasm of breast (principal)
CPT/HCPCS: 77067

== ENCOUNTER → 2023-11-12 | Outpatient (CLI) | payer BC ==
--- NOTE | 2023-11-13 12:14 | MM ---
Reason for Exam: Screening (asymptomatic). Last mammogram was performed 1 year(s) and 6 month(s) ago. Patient History: Menarche at age 12. First Full-Term at age 21. Premenopausal. Currently using Hormonal Contraceptives, starting at age 22. Risk Values: Audrey 5 year model risk: 0.9%. NCI Lifetime model risk: 9.2%. Prior Study Comparison: 08/21/2013 Screening Mammogram, [facility]. 11/08/2020 Bilateral Screening Mammogram, [facility]. 05/15/2022 Bilateral MG screening mammo w CAD, [facility]. Tissue Density: There are scattered areas of fibroglandular density. Findings: Analyzed By CAD. There is no suspicious group of microcalcifications or new suspicious mass in either breast. Overall Assessment: Negative, BI-RAD 1 Management: Screening Mammogram of both breasts in 1 year. . Patient should continue monthly self-breast exams. A clinical breast exam by your physician is recommended on an annual basis. This exam should not preclude additional follow-up of suspicious palpable abnormalities. Note on Audrey scores and lifetime risk: 1. A Audrey score greater than 3% is considered moderate risk. If this is the case, consider specialist referral to assess eligibility for a risk reducing agent. 2. If overall lifetime risk for the development of breast cancer is 20% or higher, the patient may qualify for future screening with alternating mammogram and breast MRI. [facility], , 11/13/2023 12:11 PM. Electronically signed and approved by: Sonido White M.D. Radiologis
== END | disposition home or self-care (01) ==
LOC: RADMAMWWP 12:07
PROVIDERS: ATTEND Obstetrics & Gynecology
DX: Z12.31 Encounter for screening mammogram for malignant neoplasm of breast
CPT/HCPCS: 77067

== ENCOUNTER → 2024-04-14 | Outpatient (CLI) | payer BC ==
--- NOTE | 2024-04-14 13:33 | US ---
EXAMINATION TYPE: US thyroid st tissue head/neck DATE OF EXAM: 04/14/2024 COMPARISON: NONE CLINICAL INDICATION: Female, 49 years old with history of R94.6 ABNORMAL RESULTS OF THYROID FUNCTION STUDIES; Pt states h/o parathyroid nodule seen on outside imaging studies TECHNIQUE: Grayscale and color Doppler imaging of the thyroid gland. FINDINGS: GLAND SIZE: Right Lobe: 3.5 x 1.3 x 1.8 cm Overall Parenchyma: heterogeneous Left Lobe: 3.7 x 1.2 x 1.2 cm Overall Parenchyma: heterogeneous Isthmus Thickness: 0.2 cm NODULES RIGHT: # of nodules measured on right: 1 1. 1.3 X 0.8 x 1.5 cm, lower, Prior size: Priors not performed here TIRADS Score: 6 TIRADS Category 4: Composition: Solid or almost completely solid (2 points). Echogenicity: Hypoechoic (2 points). Shape: Wider than tall (0 points). Margin: Lobulated or irregular (2 points). Echogenic foci: None or large comet-tail artifacts (0 points) Recommendation: If >1.5cm: FNA; If >1cm: Follow up at 1,2, 3,5 years Inferior and separate from right lobe of thyroid there is a solid, isoechoic, vascular lesion= 3.0 x 1.6 x 2.3 cm ?parathyroid nodule LEFT: # of nodules measured on left: 0 ISTHMUS: # of nodules measured in the isthmus: 0 Bilateral neck scanned, no evidence of lymphadenopathy. Nodules right side as described above. IMPRESSION: 1. Right thyroid nodule which may be more than 1 thyroid nodule next to it versus irregular shaped t hyroid nodule. 2. Mass inferior to the thyroid gland and separate from the thyroid gland which could represent para thyroid adenoma described in history. [facility], , 04/14/2024 1:30 PM
== END | disposition home or self-care (01) ==
LOC: RADUSWWP 12:49
PROVIDERS: ATTEND Family Medicine
DX: E04.1 Nontoxic single thyroid nodule (principal); E07.89 Other specified disorders of thyroid; R94.6 Abnormal results of thyroid function studies
CPT/HCPCS: 76536